=== PATIENT | male | born 1990 | race Caucasian/White ===

== ENCOUNTER 2025-06-06 19:42 | Inpatient (IN) | payer MEDICARE, MEDICAID, SELFPAY ==
[2025-06-06 19:43] VITALS: BP 131/72; PULSE 95; RESP 18; TEMP 36.3; O2SAT 95; BMI 17.9
--- NOTE | 2025-06-06 20:07 | PC.NURSE ---
pt was read his 96 hour hold rights at this time. Security was present at bedside.
--- NOTE | 2025-06-06 20:18 | PC.NURSE ---
Pt refused to answer suicidal assessment question. Stating he just wants to sit here quietly and not speak.
--- NOTE | 2025-06-06 20:22 | ED.C_ITS ---
HPI - Psych 2 General: Chief Complaint: Psychiatric Symptoms Stated Complaint: 96 hour hold Time Seen by Provider: 06/06/25 19:43 Source: patient, EMS and police Mode of arrival: EMS Limitations: no limitations History of Present Illness: 34-year-old male is brought in under 96- hour hold patient's been extremely paranoid patient's states that he thinks people been out to get him people are stealing his thoughts and wants him to the TV. He is very paranoid here. Denies any worse or improving factors. Difficult to get full history from patient Associated symptoms: Reports auditory hallucinations Related Data Allergies Allergy/AdvReac Type Severity Reaction Status Date / Time No Known Allergies Allergy Verified 06/06/25 20:07 Review of Systems 2 Const: Denies: fever(s), chills, body aches or change in appetite ENMT: Denies: throat pain or dental pain Card: Denies: chest pain Resp: Denies: dyspnea GI: Denies: abdominal pain, nausea, vomiting or diarrhea Musc: Denies: neck pain or back pain Skin/Breast: Denies: rash Neuro: Denies: headache(s) Psych: Reports: paranoia and auditory hallucinations Physical Exam 2 Const: COMMON NORMALS: patient oriented x3 HENMT: COMMON NORMALS: normocephalic and atraumatic HEAD & SCALP: n ormocephalic and atraumatic Eye: COMMON NORMALS: Equal, round and reactive pupils present and EOMs intact bilaterally PUPIL: Yes Equal, round and reactive pupils present Neck/C-Spine: COMMON NORMALS: full ROM and supple Chest: COMMONS NORMALS: normal inspection of the chest and normal palpation of entire chest wall Resp: COMMON NORMALS: normal respiratory effort, No retractions, No use of accessory muscles and clear to auscultation bilaterally AUSCULTATION: clear to auscultation bilaterally Cardio: COMMON NORMALS: regular rate, regular rhythm and No murmurs present (Cardio) RATE: regular rate RHYTHM: regular rhythm GI: COMMON NORMALS: Normal to inspection, nondistended, normoactive bowel sounds present, Soft to palpation, non-tender and no masses PALPATION: Yes Soft to palpation Extremity: COMMON NORMALS: normal to inspection and full ROM Neuro: COMMON NORMALS: patient oriented x3, moves all extremities and no focal motor deficits Psych: COMMON NORMALS: cooperative ATTITUDE: Yes paranoid and Yes bizarre MOOD & AFFECT: Yes anxious THOUGHT PROCESS: Flight of ideas present Skin: COMMON NORMALS: no rashes or lesions noted and no wounds GENERAL SKIN EXAM: no rashes or lesions noted Course 2 Vital Signs: Vital signs: Vital Signs Temperature 97.3 F L 06/06/25 19:43 Pulse Rate 95 06/06/25 19:43 Respiratory Rate 18 06/06/25 19:43 Blood Pressure 131/72 06/06/25 19:43 Pulse Oximetry 95 06/06/25 19:43 Oxygen Delivery Me thod Room Air 06/06/25 19:43 MDM - Psych Medical Decision Making Patient presents here with suicidal ideations he is medically cleared does have an elevated white count likely from a stress reaction no signs of infection spoke to psychiatrist will admit. Medical Records I reviewed the patient's medical records. Lab Data I reviewed the patient's lab results. 06/06/25 20:38 06/06/25 20:38 Laboratory Results WBC 21.76 10^3/uL (3.29-11.43) H 06/06/25 20:38 RBC 4.67 10^6/uL (3.85-5.65) 06/06/25 20:38 Hgb 14.30 g/dL (11.27-16.99) 06/06/25 20:38 Hct 40.2 % (37-53) 06/06/25 20:38 MCV 86.1 fl (82-101) 06/06/25 20:38 MCH 30.6 pg (27-33) 06/06/25 20:38 MCHC 35.6 g/dL (30-55) 06/06/25 20:38 RDW 12.7 % (12.1-15.1) 06/06/25 20:38 Plt Count 364 10^3/cmm (157-399) 06/06/25 20:38 MPV 9.2 fL (7.4-10.4) 06/06/25 20:38 Neut % (Auto) 88.4 % 06/06/25 20:38 Lymph % (Auto) 5.8 % 06/06/25 20:38 Lassen % (Auto) 5.0 % 06/06/25 20:38 Eos % (Auto) 0.0 % 06/06/25 20:38 Baso % (Auto) 0.4 % 06/06/25 20:38 Neut # (Auto) 19.22 10^3/uL (1.8-7.7) H 06/06/25 20:38 Lymph # (Auto) 1.3 10^3/uL (0.8-4.8) 06/06/25 20:38 Lassen # (Auto) 1.1 10^3/uL (0.2-0.9) H 06/06/25 20:38 Eos # (Auto) 0.0 10^3/uL (0.0-0.8) 06/06/25 20:38 Baso # (Auto) 0.1 10^3/uL (0.0-0.1) 06/06/25 20:38 Nucleated RBC % (auto) 0 % 06/06/25 20:38 Nucleated RBCs # 0.0 /100WBC 06/06/25 20:38 Sodium 142 mmol/L (136-145) 06/06/25 20:38 Potassium 4.3 mmol/L (3.5-5.1) 06/06/25 20:38 Chloride 104 mmol/L (98-107) 06/06/25 20:38 Carbon Dioxide 22 mmol/L (22-29) 06/06/25 20:38 Calcium 10.4 mg/dL (8.5-10.5) 06/06/25 20:38 Total Bilirubin 1.1 mg/dL (0.15-1.2) 06/06/25 20:38 AST 17 U/L (0-40) 06/06/25 20:38 ALT 24 U/L (0-41) 06/06/25 20:38 Alkaline Phosphatase 68 U/L (40-130) 06/06/25 20:38 Total Protein 8.1 g/dL (6.6-8.7) 06/06/25 20:38 Albumin 5.1 g/dL (3.5-5.2) 06/06/25 20:38 Globulin 3.0 g/dL (1.3-4.6) 06/06/25 20:38 All radiology interpretation(s) finalized by discharge Discharge Plan Discharge Patient Disposition: Admitted As Inpatient Clinical Impression: Acute psychosis Condition: Stable Coding Level of Care Code ED In Service Education Teacher for Teressa Lamb
[2025-06-06 21:06] LABS: Hematocrit 40.2 % (37-53); Hemoglobin 14.30 g/dL (11.27-16.99); Mean Corpuscular HGB Conc 35.6 g/dL (30-55); Mean Corpuscular Hemoglobin 30.6 pg (27-33); Mean Corpuscular Volume 86.1 fl (82-101); Nucleated Red Blood Cells % 0 %; Platelet Count 364 10^3/cmm (157-399); Red Blood Count 4.67 10^6/uL (3.85-5.65); White Blood Count 21.76 10^3/uL (3.29-11.43)
[2025-06-06 21:31] LABS: Alanine Aminotransferase 24 U/L (0-41); Albumin Level 5.1 g/dL (3.5-5.2); Alkaline Phosphatase 68 U/L (40-130); Anion Gap 20.3 (5-19); Aspartate Amino Transferase 17 U/L (0-40); Blood Urea Nitrogen 21 mg/dL (6-20); Calcium 10.4 mg/dL (8.5-10.5); Carbon Dioxide 22 mmol/L (22-29); Chloride 104 mmol/L (98-107); Creatinine Clr Calc Pharmacy 87.8917; Globulin 3.0 g/dL (1.3-4.6); Glucose 116 mg/dL (65-115); Osmolality Calculated 298 mOsm/kg (285-295); Potassium 4.3 mmol/L (3.5-5.1); Salicylate 0.9 mg/dL (3-10); Sodium 142 mmol/L (136-145); Total Protein 8.1 g/dL (6.6-8.7)
[2025-06-06 21:37] LABS: Acetaminophen < 5.0 ug/mL (10-30); Alcohol Level < 10 mg/dL (0-10)
[2025-06-06 22:46] VITALS: BP 130/85; PULSE 80; RESP 20; TEMP 36.7; O2SAT 100
--- NOTE | 2025-06-07 01:58 | PC.NURSE ---
pt father phone calls pt father called multiple times. he was educated on our process and stated several things including: pt is concerned about money since he is on a fixed income and doesn't eat a lot to save money. pt was deemed incompetent in a court of law however no guardian was appointed pt has eloped from facilities in the past
[2025-06-07 06:00] VITALS: BP 115/80; PULSE 70; RESP 20; O2SAT 99
[2025-06-07 10:14] LABS: PCP Screen Urine Negative (Negative)
[2025-06-07 14:00] VITALS: BP 125/72; PULSE 99; RESP 18; TEMP 36.6; O2SAT 95
--- NOTE | 2025-06-07 16:10 | P.NPUHP_ITS ---
Providers/Chief Complaint 2 Admitting Physician: Tom Snow MD Chief Complaint: 96 hour hold HPI NPU History of Present Illness Gautam Cabello is a 34 year old male who presented to the emergency department after he had displayed unusual behaviors outside of the crisis stabilization center here in [facility]. Patient had allegedly been aggressive and refusing to come inside after ranting that he needed a weed Jose and wanted to receive help. The patient was admitted to the neuropsychiatric unit for further evaluation and treatment. The patient reports that he feels at times that others can read his mind and steal his thoughts. He reports that he is not currently on any medications but has been diagnosed with schizophrenia. He reports that his biological parents had gone to [place] and reports that he has been left in charge of taking care of their house while living there. He states that he has been attempting to cut and care for the lawn and reports that over the past 2 days he had been frustrated that people had been coming to his parents home and attempting to procure services to care for the lawn. He reports that he has difficulty with trusting others. He reports that he feels that he can engage in taking care of the lawn himself. He states that he had been frustrated at not having something to take care of the weeds and reports that he went to the crisis center in hopes that they could help him with obtaining a weed Jose. He states that he did not receive any help there and reports that he had yelled something to someone there and then promptly went home. He states that eventually the police had come to his home and stated that he would need to go into the hospital. He reports that he simply wants to be left alone and states that others continue to involve themselves into his world. He reports having a lack of trust of anyone. The patient had reported that everyone gets depressed and acknowledged that at times he feels depressed. He denied any suicidal ideation or homicidal ideation. 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 He denies any drug use but reports occasional alcohol use. Patient reports that he has been living here for the past 3 years. The patient was an extremely poor historian. Inpatient psychiatric history: He has a history of multiple inpatient hospitalizations. Outpatient psychiatric history: He had intimated as to a history of having been placed on multiple medications. He is currently not receiving any psychiatric services but reports that he had received outpatient services for many years and currently is on disability for schizophrenia. Substance abuse history: None reported currently although he had alleged that he used several drugs in the distant past. He reports that he smokes cigarettes routinely. Medical history: None reported Surgical history: None reported Allergies: No known drug allergies Current Medications: none Legal history: Unknown Family psychiatric history: None reported Social history: The patient reports that he was born in [place] and reports having lived in multiple states growing up. He had stated that he had completed high school and describes having no problems with learning. He reports that he was raised by both his parents who are currently out of the country and he is staying on their property while managing it since they had apparently gone somewhere in [place]. He had endorsed a history of trauma while being placed in the school as an adolescent. Meds NPU Home Medications ?Medication ?Instructions ?Recorded ?Confirmed ?Last Taken ?Type No Known Home Medications 06/07/2505/11 Unknown History Allergies Allergy/AdvReac Type Severity Reaction Status Date / Time No Known Allergies Allergy Verified 06/06/25 20:07 Mental Status Exam 2 MSE Comments: 34-year-old male with fair hygiene and n ormal gait with no evidence of any abnormal involuntary motor movements, tics, or tremors appreciated. He appeared very guarded on interview and would only provide limited information of details. His speech was productive and normal in volume and rate. His thought process was initially linear and logical. His thought content showed no evidence of suicidal or homicidal ideation. There was evidence of bizarre delusions. He appeared overtly paranoid and distrustful. There was some evidence of a belief of thought broadcasting. He did not appear to be responding to internal stimuli. He was alert and oriented to person, place, time, and situation. His insight is impaired. His judgment is poor. His impulse control appeared limited. Vitals/I&O/Wt Last Vital Signs Temp 97.8 F 06/07/25 14:00 Pulse 99 06/07/25 14:00 Resp 18 06/07/25 14:00 BP 125/72 06/07/25 14:00 Pulse Ox 95 06/07/25 14:00 O2 Del Method Room Air 06/06/25 22:51 Weight last 48 hrs Weight 77.61 kg Data NPU 06/06/25 20:38 06/06/25 20:38 A&P Assessment and plan 1. Acute psychosis: 2. Schizophrenia, paranoid type: Plan: 34-year-old male with a history of likely schizophrenia currently on no medications for apparently a good deal of time while refusing any help at this time in regards to medications. #1.? Engage patient in individual milieu and group therapy. #2?? Evaluate under the context of an involuntary hold. #3? TO-15 minute checks? #4?? Will attempt to gather collateral information PDMP PDMP Reviewed: Not Reviewed Involuntary Hold Information 2 Hold Status: Legal Status: 96 Hour Hold Date/Time Hold Expires: 06/12/25 @ 20:00 Attestations NPU 2 Medical Necessity Statement*: Inpatient hospitalization is medically necessary and deemed to be the clinically appropriate intervention at this time. Medications will be adjusted and initiated as indicated.? The patient will be hospitalized for at least 2 midnights.? The patient?s likely length of stay is 5-7 days. ? Coding Level of Care Code Acute Code for Chg Fwd Diagnoses Acute psychosis F23 Schizophrenia, paranoid type F20.0
[2025-06-07 19:26] VITALS: BP 125/80; PULSE 84; RESP 16; TEMP 36.7; O2SAT 99
[2025-06-08 06:00] VITALS: BP 129/77; PULSE 79; RESP 16; TEMP 36.6; O2SAT 98
[2025-06-08 14:00] VITALS: BP 142/84; PULSE 78; RESP 17; TEMP 36.6; O2SAT 100
--- NOTE | 2025-06-08 17:56 | P.NPUPN_ITS ---
Subjective NPU 2 Subjective: 34-year-old male with a likely history o f schizophrenia or bipolar disorder admitted with psychosis. He is currently refusing any medications. He had reported that he did at times feel as if others could retrieve and gather his thoughts as if they were being broadcasted. He had reported that he remained uncertain as to where his parents were [facility] and [place]. He reported that he would have to think about it if they had offered to have him go live with them. He had reported that he had taken care of his mental health issues through diet and exercise. He had reported to having some struggles with being around people and did acknowledge that at times he did not trust others. He had denied having any depression at this time. He had reported that it was a misunderstanding that had led him to being here in the hospital. He had reported that his simple goals remained to care for his parents home and stated that he had had limited ability at managing his parents home in the past. He had reported that he had lived independently for a period of time but stated that he was stuck in a situation where there were maggots and bugs all over the household and he stated that he found that to be unacceptable. Staff reports the patient had struggled with staying asleep and the patient acknowledged that he had woken up early. Mental Status Exam 2 MSE Comments: 34-year-old male with fair hygiene and n ormal gait with no evidence of any abnormal involuntary motor movements, tics, or tremors appreciated. He appeared guarded at times on interview. His speech was productive almost excessive and normal in volume and rate. His thought process was initially linear and logical. His thought content showed no evidence of suicidal or homicidal ideation. There was evidence of delusional thinking and thought broadcasting. He appeared overtly paranoid and distrustful. He did not appear to be responding to internal stimuli. He was alert and oriented to person, place, time, and situation. His insight is impaired. His judgment is poor. His impulse control appeared limited. Vitals/I&O/Wt Last Vital Signs Temp 97.8 F 06/08/25 14:00 Pulse 78 06/08/25 14:00 Resp 17 06/08/25 14:00 BP 142/84 06/08/25 14:00 Pulse Ox 100 06/08/25 14:00 O2 Del Method Room Air 06/08/25 06:00 Weight last 48 hrs Weight 77.61 kg Data NPU 06/06/25 20:38 06/06/25 20:38 A&P Assessment and plan 1. Acute psychosis: 2. Schizophrenia, paranoid type: Plan: 34-year-old male with a history of likely schizophrenia currently on no medications for apparently a good deal of time while refusing any help at this time in regards to medications. #1.? Engage patient in individual milieu and group therapy. #2?? Evaluate under the context of an involuntary hold. #3? TO-15 minute checks? #4?? Will attempt to gather collateral information PDMP PDMP Reviewed: Not Reviewed Involuntary Hold Information 2 Hold Status: Legal Status: 96 Hour Hold Date/Time Hold Expires: 06/12/25 @ 20:00 Attestations NPU 2 Medical Necessity Statement*: Inpatient hospitalization is medically necessary and deemed to be the clinically appropriate intervention at this time. Medications will be adjusted and initiated as indicated.??The patient?s likely length of stay is 5-7 days. ? Coding Level of Care Code Acute Code for Chg Fwd Diagnoses Acute psychosis F23 Schizophrenia, paranoid type F20.0
[2025-06-08 20:24] VITALS: BP 137/85; PULSE 99; RESP 18; TEMP 36.8; O2SAT 100
[2025-06-09 06:00] VITALS: BP 111/76; PULSE 73; RESP 16; TEMP 36.5; O2SAT 100
[2025-06-09 14:00] VITALS: BP 127/72; PULSE 83; RESP 17; TEMP 36.9; O2SAT 96
--- NOTE | 2025-06-09 16:59 | DCPLANNER ---
IMM was given to pt and right explained and copy placed in file.
--- NOTE | 2025-06-09 17:47 | P.NPUPN_ITS ---
Subjective NPU 2 Subjective: 34-year-old male with a likely history o f schizophrenia or bipolar disorder admitted with psychosis. Patient had reported that he was feeling okay. He did not require any redirection. He continued to engage in appropriate self-care. He had continued to refuse any medications to treat his buttermaker helper psychiatric issues. The patient denied any thoughts of hurting himself or others. He reports that he was grateful for having friends and stated that they had helped him already while he was gone to clean the yard. He reported no feelings of hopelessness and reported that at times he does get depressed and frustrated but reports his mood has been better recently. Mental Status Exam 2 MSE Comments: 34-year-old male with fair hygiene and n ormal gait with no evidence of any abnormal involuntary motor movements, tics, or tremors appreciated. He appeared less guarded on interview today. His speech was productive and normal in volume and rate. His thought process was initially linear and logical. His thought content showed no evidence of suicidal or homicidal ideation. There was some ideas of reference. He continued to endorse that others could read his mind. He did not appear to be responding to internal stimuli. He was alert and oriented to person, place, time, and situation. His insight is impaired. His judgment is poor. His impulse control appeared fair. Vitals/I&O/Wt Last Vital Signs Temp 97.7 F 06/09/25 06:00 Pulse 73 06/09/25 06:00 Resp 16 06/09/25 06:00 BP 111/76 06/09/25 06:00 Pulse Ox 100 06/09/25 06:00 O2 Del Method Room Air 06/09/25 06:00 Data NPU 06/06/25 20:38 06/06/25 20:38 A&P Assessment and plan 1. Acute psychosis: 2. Schizophrenia, paranoid type: Plan: 34-year-old male with a history of likely schizophrenia currently on no medications for apparently a good deal of time while refusing any help at this time in regards to medications. #1.? Engage patient in individual milieu and group therapy. #2?? Evaluate under the context of an involuntary hold. Patient appears to be engaged in self care and refusing medications though he does not appear currently to be candidate to forcibly medicate. #3? TO-15 minute checks? #4?? Will attempt to gather collateral information PDMP PDMP Reviewed: Not Reviewed Involuntary Hold Information 2 Hold Status: Legal Status: 96 Hour Hold Date/Time Hold Expires: 06/12/25 @ 20:00 Attestations NPU 2 Medical Necessity Statement*: Inpatient hospitalization is medically necessary and deemed to be the clinically appropriate intervention at this time. Medications will be adjusted and initiated as indicated.??The patient?s likely length of stay is 1-2 days. ? Coding Level of Care Code Acute Code for Chg Fwd Diagnoses Acute psychosis F23 Schizophrenia, paranoid type F20.0
[2025-06-09 20:36] VITALS: BP 144/86; PULSE 79; RESP 16; TEMP 37.1; O2SAT 100
[2025-06-10 06:00] VITALS: BP 164/73; PULSE 83; RESP 18; TEMP 36.6; O2SAT 99
[2025-06-10 06:33] VITALS: BP 161/73
--- NOTE | 2025-06-10 13:03 | W.PM.NPUDCS ---
Diagnoses at Discharge Discharge Diagnosis 1. Acute psychosis: 2. Schizophrenia, paranoid type: Reason for Visit Reason for Visit: 96 hour hold Brief History: History of Present Illness Gautam Cabello is a 34 year old male who presented to the emergency department after he had displayed unusual behaviors outside of the crisis stabilization center here in [facility]. Patient had allegedly been aggressive and refusing to come inside after ranting that he needed a weed Jose and wanted to receive help. The patient was admitted to the neuropsychiatric unit for further evaluation and treatment. The patient reports that he feels at times that others can read his mind and steal his thoughts. He reports that he is not currently on any medications but has been diagnosed with schizophrenia. He reports that his biological parents had gone to [place] and reports that he has been left in charge of taking care of their house while living there. He states that he has been attempting to cut and care for the lawn and reports that over the past 2 days he had been frustrated that people had been coming to his parents home and attempting to procure services to care for the lawn. He reports that he has difficulty with trusting others. He reports that he feels that he can engage in taking care of the lawn himself. He states that he had been frustrated at not having something to take care of the weeds and reports that he went to the crisis center in hopes that they could help him with obtaining a weed Jose. He states that he did not receive any help there and reports that he had yelled something to someone there and then promptly went home. He states that eventually the police had come to his home and stated that he would need to go into the hospital. He reports that he simply wants to be left alone and states that others continue to involve themselves into his world. He reports having a lack of trust of anyone. The patient had reported that everyone gets depressed and acknowledged that at times he feels depressed. He denied any suicidal ideation or homicidal ideation. 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 He denies any drug use but reports occasional alcohol use. Patient reports that he has been living here for the past 3 years. The patient was an extremely poor historian. Inpatient psychiatric history: He has a history of multiple inpatient hospitalizations. Outpatient psychiatric history: He had intimated as to a history of having been placed on multiple medications. He is currently not receiving any psychiatric services but reports that he had received outpatient services for many years and currently is on disability for schizophrenia. Substance abuse history: None reported currently although he had alleged that he used several drugs in the distant past. He reports that he smokes cigarettes routinely. Medical history: None reported Surgical history: None reported Allergies: No known drug allergies Current Medications: none Legal history: Unknown Family psychiatric history: None reported Social history: The patient reports that he was born in [place] and reports having lived in multiple states growing up. He had stated that he had completed high school and describes having no problems with learning. He reports that he was raised by both his parents who are currently out of the country and he is staying on their property while managing it since they had apparently gone somewhere in [place]. He had endorsed a history of trauma while being placed in the school as an adolescent. Hospital Course Hospital Course The patient had clearly shown evidence of a psychotic process as he likely carries a diagnosis of schizophrenia. However, patient appeared to tolerate the milieu well and did not appear to be a threat to himself or others at this time. He was able to engage in his own self-care with good consumption of fluids and food without any issue. He was strongly encouraged to consider medications to help him but refused at this time despite several efforts. He did not meet criteria for forced medications and was simply discharged. During the hospitalization, the patient had routine laboratory studies which were within normal limits except for a few outliers.? Additionally, there was a general medical evaluation which was also within normal limits and revealed no new acute processes.? At the time of discharge, lethality was denied and paranoia was present but likely at his baseline.? Mood and anxiety were well managed.? The patient endorsed a plan to avoid all drugs of abuse and follow up with the aftercare recommendations of the treatment team.? The patient was evaluated and deemed to be absent credible lethality and had achieved the maximum benefit from an inpatient hospitalization, and so was discharged. ? Involuntary Hold Information Hold Status: Legal Status: 96 Hour Hold Date/Time Hold Expires: 06/12/25 @ 20:00 Mental Status Exam MSE Comments: 34-year-old male with fair hygiene and normal gait with no evidence of any abnormal involuntary motor movements, tics, or tremors appreciated. He appeared less guarded on interview today. His speech was productive and normal in volume and rate. His thought process was initially linear and logical. His mood was described as okay. His affect appeared blunted. His thought content showed no evidence of suicidal or homicidal ideation. There was some ideas of reference. There was no evidence of active overt delusions. He did not appear to be responding to internal stimuli. He was alert and oriented to person, place, time, and situation. His insight is impaired. His judgment is limited. His impulse control appeared fair. Discharge Data Studies Completed and Pending: Laboratory Results WBC 21.76 10^3/uL (3. 29-11.43) H 06/06/25 20:38 RBC 4.67 10^6/uL (3.8 5-5.65) 06/06/25 20:38 Hgb 14.30 g/dL (11.27 -16.99) 06/06/25 20:38 Hct 40.2 % (37-53) 06/06/25 20:38 MCV 86.1 fl (82-101) 06/06/25 20:38 MCH 30.6 pg (27-33) 06/06/25 20:38 MCHC 35.6 g/dL (30-55) 06/06/25 20:38 RDW 12.7 % (12.1-15.1 ) 06/06/25 20:38 Plt Count 364 10^3/cmm (157 -399) 06/06/25 20:38 MPV 9.2 fL (7.4-10.4) 06/06/25 20:38 Neut % (Auto) 88.4 % 06/06/25 20:38 Lymph % (Auto) 5.8 % 06/06/25 20:38 Foard % (Auto) 5.0 % 06/06/25 20:38 Eos % (Auto) 0.0 % 06/06/25 20:38 Baso % (Auto) 0.4 % 06/06/25 20:38 Neut # (Auto) 19.22 10^3/uL (1. 8-7.7) H 06/06/25 20:38 Lymph # (Auto) 1.3 10^3/uL (0.8- 4.8) 06/06/25 20:38 Foard # (Auto) 1.1 10^3/uL (0.2- 0.9) H 06/06/25 20:38 Eos # (Auto) 0.0 10^3/uL (0.0- 0.8) 06/06/25 20:38 Baso # (Auto) 0.1 10^3/uL (0.0- 0.1) 06/06/25 20:38 Nucleated RBC % (a uto) 0 % 06/06/25 20:38 Nucleated RBCs # 0.0 /100WBC 06/06/25 20:38 Sodium 142 mmol/L (136-1 45) 06/06/25 20:38 Potassium 4.3 mmol/L (3.5-5 .1) 06/06/25 20:38 Chloride 104 mmol/L (98-10 7) 06/06/25 20:38 Carbon Dioxide 22 mmol/L (22-29) 06/06/25 20:38 Anion Gap 20.3 (5-19) H 06/06/25 20:38 BUN 21 mg/dL (6-20) H 06/06/25 20:38 Creatinine 1.3 mg/dL (0.7-1. 2) H 06/06/25 20:38 GFR Calculation 63.2 mL/min (90-1 30) L 06/06/25 20:38 Glucose 116 mg/dL (65-115 ) H 06/06/25 20:38 Calculated Osmolal ity 298 mOsm/kg (285- 295) H 06/06/25 20:38 Calcium 10.4 mg/dL (8.5-1 0.5) 06/06/25 20:38 Total Bilirubin 1.1 mg/dL (0.15-1 .2) 06/06/25 20:38 AST 17 U/L (0-40) 06/06/25 20:38 ALT 24 U/L (0-41) 06/06/25 20:38 Alkaline Phosphata se 68 U/L (40-130) 06/06/25 20:38 Total Protein 8.1 g/dL (6.6-8.7 ) 06/06/25 20:38 Albumin 5.1 g/dL (3.5-5.2 ) 06/06/25 20:38 Globulin 3.0 g/dL (1.3-4.6 ) 06/06/25 20:38 Salicylates 0.9 mg/dL (3-10) L 06/06/25 20:38 Urine Opiates Scre en Negative ng/mL (N egative) 06/07/25 09:30 Acetaminophen < 5.0 ug/mL (10-3 0) L 06/06/25 20:38 Ur Barbiturates Sc reen Negative ng/mL (N egative) 06/07/25 09:30 Ur Phencyclidine S crn Negative ng/mL (N egative) 06/07/25 09:30 Ur Amphetamines Sc reen Negative ng/mL (N egative) 06/07/25 09:30 U Benzodiazepines Scrn Negative ng/mL (N egative) 06/07/25 09:30 Urine Cocaine Scre en Negative ng/mL (N egative) 06/07/25 09:30 U Marijuana (THC) Screen Negative ng/mL (N egative) 06/07/25 09:30 Ethyl Alcohol < 10 mg/dL (0-10) 06/06/25 20:38 Vitals: Last Vital Signs Temp 97.8 F 06/10/25 06:00 Pulse 83 06/10/25 06:00 Resp 18 06/10/25 06:00 BP 161/73 06/10/25 06:33 Pulse Ox 99 06/10/25 06:00 O2 Del Method Room Air 06/10/25 06:00 Discharge Plan Discharge Patient Disposition: Home Condition: Stable Prescriptions: No Action No Known Home Medications Discharge Order = DC NOW: Discharge Order (Routine); Ordered 06/10/25 Ordered By: Tom Snow Referrals: [facility] [place] [Outside] - 06/13/25 11:30 am Referral Note: Scheduled with [facility] at noon on 06/13/25 @ 11:30 check in for an intake assessment. Discharge Diet: Usual diet Discharge Activity: Resume usual activity Patient Instructions: Opioid Safety, Patient Portal & Divya Instructions Discharge Attestations NPU Time Spent in Discharge Care*: less than 30 min Specific Discharge Activities: Specific discharge activities: educating patient, discussing with continuous pillowcase cutter/social workers/dc planners and documenting/other paperwork Coding Level of Care Code Acute Code for [facility] Fwd Diagnoses Acute psychosis F23 Schizophrenia, paranoid type F20.0
[2025-06-10 13:14] VITALS: BP 161/73; PULSE 83; RESP 18; TEMP 36.6; O2SAT 99
== END 2025-06-10 13:28 | disposition home or self-care (01) | DRG 885 ==
LOC: ER 22:00 → NP 22:11
PROVIDERS: Admitting Provider Psychiatry & Neurology Psychiatry; Emergency Provider Emergency Medicine; Visit Provider Psychiatry & Neurology Psychiatry
DX: F20.0 Paranoid schizophrenia (principal)
CPT/HCPCS: 36415; 80053; 80306; 80307; 85025; 97150; 97165; 99285